=== PATIENT | male | born 1970 | race Caucasian/White ===

== ENCOUNTER 2021-05-06 15:14 | Emergency (ER) | payer SELFPAY ==
[~2021-05-06] VITALS: Ht 154.9 cm; Wt 100.0 kg
[2021-05-06 15:35] VITALS: BP 164/106
[2021-05-06] MEDS ORDERED: IBUPROFEN 600MG TABLET PO STA (17:25)
[2021-05-06] MEDS ORDERED: NAPR-681 PO (18:46)
[2021-05-06] MEDS ORDERED: AMOX-424 PO (18:46)
== END 2021-05-06 19:03 | disposition home or self-care (01) ==
LOC: ER 15:14
DX: S39.012A Strain of muscle, fascia and tendon of lower back, initial encounter (principal); K04.7 Periapical abscess without sinus; K08.89 Other specified disorders of teeth and supporting structures; X58.XXXA Exposure to other specified factors, initial encounter; Y93.89 Activity, other specified; Y92.89 Other specified places as the place of occurrence of the external cause; Y99.8 Other external cause status
CPT/HCPCS: 99283

== ENCOUNTER 2024-03-06 10:39 | Emergency (ER) | payer SELFPAY ==
[~2024-03-06] VITALS: Ht 157.5 cm; Wt 91.0 kg
[~2024-03-06 10:39] MED LIST: AMOX-424 PO; NAPR-681 PO
[2024-03-06 10:44] VITALS: O2SAT 99
[2024-03-06 10:46] VITALS: BP 174/102; PULSE 78; RESP 18; TEMP 98.5; O2SAT 97
[2024-03-06] MEDS ORDERED: LIDO700A30 TP (11:01)
[2024-03-06] MEDS ORDERED: NAPR-681 PO (11:01)
[2024-03-06] MEDS ORDERED: TOPUD PO (11:01)
[2024-03-06] MEDS: HYDROCODONE/ACETAMINOPHEN 5/325MG TABLET PO ONE (11:27)
[2024-03-06] MEDS: KETOROLAC 30MG/ML VIAL IM ONE (11:27)
== END 2024-03-06 11:55 | disposition home or self-care (01) ==
LOC: EDBD 10:39 → ER 10:39
DX: M54.50 Low back pain, unspecified (principal); Z79.899 Other long term (current) drug therapy
CPT/HCPCS: 99283; 96372; J1885